=== PATIENT | male | born 1955 | race Caucasian/White ===

== ENCOUNTER 2018-12-06 02:01 | Emergency (ER) | payer MEDICAID ==
[~2018-12-06] VITALS: Ht 167.6 cm; Wt 62.0 kg
[2018-12-06] MEDS ORDERED: SODIUM CHLORIDE 0.9% 1,000 ML IV ONE (10:49)
[2018-12-06] MEDS ORDERED: ONDANSETRON HCL 4MG/2ML INJ IV STA (10:49)
[2018-12-06 11:28] LABS: HEMATOCRIT. 41.1 % (42.0-52.0); MEAN CORPUSCULAR HEMOGLOBIN 31.4 pg (28.0-32.0); MEAN CORPUSCULAR VOLUME 92.2 fL (80.0-94.0); MEAN PLATELET VOLUME 10.3 fl (7.4-10.4); PLATELET 85 x1000/uL (130-400); RED BLOOD CELL COUNT 4.46 mill/uL (4.7-6.1); RED CELL DISTRIBUTION WIDTH 14.1 % (11.6-14.6)
[2018-12-06 11:34] LABS: CHLORIDE 108 mEq/L (98-107)
[2018-12-06 11:55] LABS: PLATELET ESTIMATE DECREASED
[2018-12-06 12:38] VITALS: BP 125/71
== END 2018-12-06 12:39 | disposition home or self-care (01) ==
LOC: ER 02:51 → EDBD 02:51 → ER 12:39
DX: R51 Headache (principal); R11.10 Vomiting, unspecified; R56.9 Unspecified convulsions; R41.3 Other amnesia; I10 Essential (primary) hypertension; F17.200 Nicotine dependence, unspecified, uncomplicated; Z85.9 Personal history of malignant neoplasm, unspecified
CPT/HCPCS: 36415; 70450; 80053; 85025; 99284; J2405; J7030; Z7610

== ENCOUNTER 2018-12-06 12:48 | Emergency (ER) | payer MEDICAID | END 2018-12-06 14:42 | disposition left against medical advice (07) | LOC: ER 13:50 | DX: R51 Headache (principal); Z53.21 Procedure and treatment not carried out due to patient leaving prior to being seen by health care provider ==